=== PATIENT | male | born 1985 | race Caucasian/White ===

== ENCOUNTER 2018-07-23 02:46 | Emergency (ER) | payer MEDICAID ==
[~2018-07-23] VITALS: Ht 177.8 cm; Wt 79.0 kg
[2018-07-23 07:00] VITALS: BP 126/78
== END 2018-07-23 07:18 | disposition home or self-care (01) ==
LOC: EDBD 02:46 → ER 03:33
DX: F31.9 Bipolar disorder, unspecified (principal)
CPT/HCPCS: 99284